=== PATIENT | female | born 1965 | race Caucasian/White ===

== ENCOUNTER 2017-05-11 06:59 | Emergency (ER) | payer BC ==
[2017-05-11] MEDS ORDERED: Sodium Chloride 0.9% 1,000 ML IV ONE ×2 (07:34→07:45)
[2017-05-11] MEDS ORDERED: Ketorolac 30 MG/ML SDV IVPUSH ONE ×2 (07:35→07:45)
[2017-05-11] MEDS ORDERED: Ondansetron 4 MG/2 ML SDV IVPUSH ONE ×2 (07:36→07:45)
--- NOTE | 2017-05-11 08:01 | EDM.PDOC ---
<Cale Thomason - Last Filed: 05/11/17 10:15> ED HPI GENERAL MEDICAL PROBLEM - General Chief Complaint: Genitourinary Problem Stated Complaint: KIDNEY STONE Time Seen by Provider: 05/11/17 07:12 Source of Information: Reports: Patient History Limitations: Reports: No Limitations - History of Present Illness INITIAL COMMENTS - FREE TEXT/NARRATIVE: HISTORY AND PHYSICAL: History of present illness: This 50-year-old female with past medical history of multiple kidney stones presented to the emergency department complaining of left flank pain. As per the patient, pains began this morning approximately 4 AM. She tells me currently that the pain is located in her left flank region rated a 9 out of 10. Pain is nonradiating. She tells me that she was able to urinate prior to coming to the emergency department. She denies any hematuria or difficulty urinating. Currently she does feel nauseous however she denies subjective fever or chills. She denies any shortness of breath. She has no other complaints. Review of systems: As per history of present illness and below otherwise all systems reviewed and negative. Past medical history: As per history of present illness and as reviewed below otherwise noncontributory. Surgical history: Nephrolithiasis resulting in lithotripsy. Social history: No reported history of drug or alcohol abuse. Family history: As per history of present illness and as reviewed below otherwise noncontributory. Physical exam: HEENT: Atraumatic, normocephalic, pupils reactive, negative for conjunctival pallor or scleral icterus, mucous membranes moist, throat clear, neck supple, nontender, trachea midline. Lungs: Clear to auscultation, breath sounds equal bilaterally, chest nontender. Heart: S1S2, regular, negative for clicks, rubs, or JVD. Abdomen: Soft, nondistended, nontender. Negative for masses or hepatosplenomegaly. Negative for costovertebral tenderness. Extremities: Atraumatic, negative for cords or calf pain. Neurovascular unremarkable. Diagnostics: CBC CMP [employer]: Zofran 4mg IV push once Toradol 30mg IV push once IV NS bolus Impression: 6mm obstructive kidney stone Plan: Flomax Follow up with Urology Left Flank Pain Score (Numeric/FACES): 9 - Related Data Allergies Allergy/AdvReac Type Severity Reaction Status Date / Time No Known Allergies Allergy Verified 05/11/17 07:51 Home Meds: Home Meds Hydrocodone/Acetaminophen [[place] 5-325] 1 mg PO DAILY PRN 01/30/16 [History] Ciprofloxacin [IJD: Ciprofloxacin HCl] 500 mg PO BID #14 tab 05/11/17 [Rx] Tamsulosin HCl [Flomax] 0.4 mg PO DAILY #2 cap.er.24h 05/11/17 [Rx] Tamsulosin [Flomax] 0.4 mg PO PCBREAKFAST #6 cap.er 05/11/17 [Rx] traMADol [Ultram] 50 mg PO Q6H #25 tablet 05/11/17 [Rx] Past Medical History HEENT History: Reports: Impaired Vision Other HEENT History: wears glasses for driving Cardiovascular History: Reports: None Respiratory History: Reports: None Gastrointestinal History: Reports: None Genitourinary History: Reports: Renal Calculus [employer] History: Reports: Musculoskeletal History: Reports: Fracture Other Musculoskeletal History: tailbone Neurological History: Reports: None Psychiatric History: Reports: None Endocrine/Metabolic History: Reports: None Hematologic History: Reports: None Immunologic History: Reports: None Oncologic (Cancer) History: Reports: None Dermatologic History: Reports: None - Past Surgical History Head Surgeries/Procedures: Reports: None Cardiovascular Surgical History: Reports: None Respiratory Surgical History: Reports: None GI Surgical History: Reports: None Endocrine Surgical History: Reports: None Neurological Surgical History: Reports: None Oncologic Surgical History: Reports: None Social & Family History - Family History Family Medical History: Noncontributory - Tobacco Use Smoking Status *Q: Never Smoker - Caffeine Use Caffeine Use: Reports: None - Recreational Drug Use Recreational Drug Use: No ED ROS GENERAL - Review of Systems Review Of Systems: See Below ED EXAM, RENAL/ - Physical Exam Exam: See Below Course - Vital Signs Last Recorded V/S: Last Vital Signs Temp 36.3 C 05/11/17 10:35 Pulse 72 05/11/17 10:35 Resp 18 05/11/17 10:35 BP 128/61 05/11/17 10:35 Pulse Ox 97 05/11/17 10:35 - Orders/Labs/Meds Labs: Laboratory Tests 05/11/17 05/11/17 05/11/17 Range/Units 07:43 07:43 08:42 WBC 7.56 (4.0-11.0) K/uL RBC 4.52 (4.30-5.90) M/uL Hgb 13.5 (12.0-16.0) g/dL Hct 39.5 (36.0-46.0) % MCV 87.4 (80.0-98.0) fL MCH 29.9 (27.0-32.0) pg MCHC 34.2 (31.0-37.0) g/dL RDW Std Deviation 41.0 (28.0-62.0) fl RDW Coeff of Earlene 13 (11.0-15.0) % Plt Count 277 (150-400) K/uL MPV 9.10 (7.40-12.00) fL Neut % (Auto) 67.2 (48.0-80.0) % Lymph % (Auto) 18.3 (16.0-40.0) % [place] % (Auto) 8.7 (0.0-15.0) % Eos % (Auto) 4.5 (0.0-7.0) % Baso % (Auto) 1.3 (0.0-1.5) % Neut # (Auto) 5.1 (1.4-5.7) K/uL Lymph # (Auto) 1.4 (0.6-2.4) K/uL [place] # (Auto) 0.7 (0.0-0.8) K/uL Eos # (Auto) 0.3 (0.0-0.7) K/uL Baso # (Auto) 0.1 (0.0-0.1) K/uL Nucleated RBC % 0.0 /100WBC Nucleated RBCs # 0 K/uL Sodium 141 (136-146) mmol/L Potassium 3.9 (3.5-5.1) mmol/L Chloride 106 (98-110) mmol/L Carbon Dioxide 25 (21-31) mmol/L BUN 14 (6.0-23.0) mg/dL Creatinine 1.0 (0.6-1.5) mg/dL Est Cr Clr Drug Dosing 51.46 mL/min Estimated GFR (MDRD) 58.0 ml/min Glucose 108 (60-110) mg/dL Calcium 9.2 (8.8-10.8) mg/dL Total Bilirubin 1.0 (0.1-1.5) mg/dL AST 19 (5-40) IU/L ALT 19 (8-54) IU/L Alkaline Phosphatase 72 (40-150) Total Protein 7.7 (6.0-8.0) g/dL Albumin 4.2 (3.5-5.0) g/dL Globulin 3.5 (2.0-3.5) g/dL Albumin/Globulin Ratio 1.2 L (1.3-2.8) Urine Color YELLOW Urine Appearance CLEAR Urine pH 5.0 (5.0-8.0) Ur Specific [place] >= 1.030 (1.001-1.035) Urine Protein 30 (NEGATIVE) mg/dL Urine Glucose (UA) NEGATIVE (NEGATIVE) mg/dL Urine Ketones NEGATIVE (NEGATIVE) mg/dL Urine Occult Blood MODERATE (NEGATIVE) Urine Nitrite NEGATIVE (NEGATIVE) Urine Bilirubin NEGATIVE (NEGATIVE) Urine Urobilinogen 0.2 (<2.0) EU/dL Ur Leukocyte Esterase TRACE (NEGATIVE) Urine RBC 4-6 (0-2/HPF) Urine WBC 1-2 (0-5/HPF) Ur Epithelial Cells FEW (NONE-FEW) Urine Bacteria FEW (NEGATIVE) Meds: Medications Discontinued Medications Generic Name Dose Route Start Last Admin Trade Name Freq PRN Reason Stop Dose Admin Sodium Chloride 1,000 mls @ 999 mls/hr 05/11/17 07:34 Normal Saline IV 05/11/17 08:34 STAT ONE Sodium Chloride 1,000 mls @ 999 mls/hr 05/11/17 07:45 05/11/17 08:02 Normal Saline IV 05/11/17 08:45 999 mls/hr .Bolus ONE Administration Ketorolac Tromethamine 30 mg 05/11/17 07:35 Toradol IVPUSH 05/11/17 07:36 ONETIME ONE Ketorolac Tromethamine 30 mg 05/11/17 07:45 05/11/17 08:07 Toradol IVPUSH 05/11/17 07:46 30 mg ONETIME ONE Administration Ketorolac Tromethamine Confirm 05/11/17 08:05 05/11/17 10:00 Toradol Administered 05/11/17 08:06 Not Given Dose 30 mg .ROUTE .STK-MED ONE Ondansetron HCl 4 mg 05/11/17 07:36 Zofran IVPUSH 05/11/17 07:37 ONETIME ONE Ondansetron HCl 4 mg 05/11/17 07:45 05/11/17 08:00 Zofran IVPUSH 05/11/17 07:46 4 mg ONETIME ONE Administration Departure - Departure Time of Disposition: 10:15 Disposition: Home, Self-Care 01 Condition: Good Clinical Impression: Kidney stone - Discharge Information Prescriptions: Ciprofloxacin [IJD: Ciprofloxacin HCl] 500 mg PO BID #14 tab Tamsulosin [Flomax] 0.4 mg PO PCBREAKFAST #6 cap.er Tamsulosin HCl [Flomax] 0.4 mg PO DAILY #2 cap.er.24h traMADol [Ultram] 50 mg PO Q6H #25 tablet Instructions: Kidney Stones, [id number] Referrals: PCP,None [Primary Care Provider] - () Forms: ED Department Discharge Additional Instructions: The following information is given to patients seen in the emergency department who are being discharged to home. This information is to outline your options for follow-up care. We provide all patients seen in our emergency department with a follow-up referral. The need for follow-up, as well as the timing and circumstances, are variable depending upon the specifics of your emergency department visit. If you don't have a primary care physician on staff, we will provide you with a referral. We always advise you to contact your personal physician following an emergency department visit to inform them of the circumstance of the visit and for follow-up with them and/or the need for any referrals to a consulting specialist. The emergency department will also refer you to a specialist when appropriate. This referral assures that you have the opportunity for follow-up care with a specialist. All of these measure are taken in an effort to provide you with optimal care, which includes your follow-up. Under all circumstances we always encourage you to contact your private physician who remains a resource for coordinating your care. When calling for follow-up care, please make the office aware that this follow-up is from your recent emergency room visit. If for any reason you are refused follow-up, please contact the [facility] Emergency Department at and asked to speak to the emergency department charge nurse. At today's visit you were found to have a kidney stone. It is important that you follow-up with urology given that is an obstructing stone. Please also follow-up with your primary care provider. Take Flomax and tramadol as prescribed. Please seek further medical attention if you continue to have pain, develop a fever nausea vomiting or chills. <Lesly Irizarry - Last Filed: 05/11/17 11:09> ED HPI GENERAL MEDICAL PROBLEM - History of Present Illness INITIAL COMMENTS - FREE TEXT/NARRATIVE: This patient was discussed with Dr. Thomason and agree with the above.
[2017-05-11] MEDS ORDERED: Ketorolac 30 MG/ML SDV ONE (08:05)
--- NOTE | 2017-05-11 09:40 | CT ---
CT scan of the abdomen and pelvis without contrast Multiple computed images of the abdomen and pelvis were obtained without IV contrast. Findings: Lung bases are clear. Liver bili or tract pancreas and spleen show no evident abnormal sig nificant findings. Right kidney is normal. Left kidney demonstrates perinephric stranding edema and there is hydronephrosis and proximal hydroureter with a 6 mm calculus in the proximal left ureter ar ea scanning distal to this demonstrates no distal ureterectasis or additional calculus. Images throu gh the pelvis show normal uterus and adnexa for size with no pelvic masses or fluid in the pelvis. Impression: 6 mm proximal obstructive ureteral calculus on the left which correlates with patient's left flank pain
[2017-05-11 11:04] VITALS: BP 128/61
== END 2017-05-11 10:36 | disposition home or self-care (01) ==
LOC: MW.ED 06:59
DX: N13.2 Hydronephrosis with renal and ureteral calculous obstruction (principal); Z79.899 Other long term (current) drug therapy
CPT/HCPCS: 36415; 74176; 80053; 81001; 85025; 96361; 96374; 96375; 99284; J1885; J2405; J7040